=== PATIENT | female | born 1945 | race Caucasian/White ===

== ENCOUNTER → 2018-01-12 11:30 | Oncology outpatient (ONC) | payer MEDICARE, OTHER, SELFPAY ==
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
[2017-07-30 16:04] VITALS: BP 118/102; PULSE 96; RESP 17; TEMP 37.2; O2SAT 98
--- NOTE | 2017-08-20 15:37 | ONC.NAV ---
Description: Felida Activity: Per pt's request, [employer] completed a medical priority boarding pass for pt and provided it to her during her infusion. Note: Only made it for the 6-week duration of her iron infusions. No other needs identified at this time.
[2017-08-20 15:47] VITALS: BP 130/71; PULSE 83; RESP 18; TEMP 37.1; O2SAT 95
[2017-08-20] MEDS: IRON SUCROSE 200 MG in SODIUM CHLORIDE 0.9% 100 ML 220 ML IV (15:50)
[2017-08-29] MEDS: IRON SUCROSE 200 MG in SODIUM CHLORIDE 0.9% 100 ML 220 ML IV (12:15)
[2017-08-29 13:28] VITALS: BP 122/69; PULSE 80; RESP 16; TEMP 37; O2SAT 92
[2017-09-04 11:55] VITALS: BP 125/57; PULSE 92; RESP 18; TEMP 36.8; O2SAT 96
[2017-09-04] MEDS: IRON SUCROSE 200 MG in SODIUM CHLORIDE 0.9% 100 ML 220 ML IV (12:08)
[2017-09-10 10:31] VITALS: BP 122/45; PULSE 85; RESP 17; TEMP 36.7; O2SAT 95
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
[2017-09-10] MEDS: IRON SUCROSE 200 MG in SODIUM CHLORIDE 0.9% 100 ML 220 ML IV (11:15)
[2017-09-17] MEDS: IRON SUCROSE 200 MG in SODIUM CHLORIDE 0.9% 100 ML 220 ML IV (12:05)
[2017-09-17 12:14] VITALS: BP 132/56; PULSE 93; RESP 14; TEMP 36.8; O2SAT 96
[2017-10-01 10:52] LABS: Reticulocyte Count, Percent 1.5 % (1.06-2.63)
[2017-10-01 10:53] LABS: Add Manual Diff / Slide Review NO; Eosinophils Percent Auto 3.4 % (2-4); Hematocrit 40.1 % (36-46); Hemoglobin 12.1 g/dL (12.0-16.0); Lymphocytes Percent Auto 21.6 % (25-40); Mean Corpuscular HGB Conc 30.2 % (30-36); Mean Corpuscular Volume 76.3 fL (80-100); Monocytes Percent Auto 5.4 % (3-14); Neutrophils Absolute Auto 3500 /uL (3000-5900); Neutrophils Percent Auto 68.6 % (50-75); Platelet Count 208 X10^3/uL (150-400); Red Blood Cell Count 5.25 X10^6/uL (4.0-5.2); Red Cell Distribution Width 30.8 % (11.6-14.8)
[2017-10-01 11:09] LABS: Alanine Aminotransferase 19 IU/L (9-52); Albumin 4.3 g/dL (3.5-5.0); Albumin Globulin Ratio 1.7 (1.0-2.8); Alkaline Phosphatase 63 U/L (38-126); Aspartate Aminotransferase 17 IU/L (14-36); Bilirubin Total 0.6 mg/dL (0.2-1.3); Blood Urea Nitrogen 23 mg/dL (7-17); Calcium 10.7 mg/dL (8.4-10.2); Carbon Dioxide 26 mmol/L (22-32); Chloride 108 mmol/L (98-107); Estimated Glomerular Filt Rate 54.3 mL/min (>60); Globulin 2.5 g/dL (1.7-4.1); Glucose 99 mg/dL (80-110); HEMOLYSIS < 15 (0-50); Sodium 143 mmol/L (137-145); Total Protein 6.8 g/dL (6.3-8.2)
[2017-10-01 11:28] LABS: Anisocytosis 2+; Poikilocytosis 1+
[2017-10-01 11:43] LABS: Ferritin 34.9 ng/mL (11.1-264)
[2017-10-01 11:52] LABS: HEMOLYSIS < 15 (0-50); Iron 36 ug/dL (37-170)
[2017-10-01 12:04] LABS: Percent Iron Saturation 9 % (15-50); Total Iron Binding Capacity 389 ug/dL (265-497); Transferrin 323 mg/dL (206-381)
[2017-10-08 10:17] VITALS: BP 133/75; PULSE 95; RESP 17; TEMP 36.7; O2SAT 98
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
[2017-12-22 11:35] LABS: Add Manual Diff / Slide Review NO; Basophils Percent Auto 0.9 % (0-2); Eosinophils Percent Auto 5.1 % (2-4); Hematocrit 42.1 % (36-46); Hemoglobin 13.2 g/dL (12.0-16.0); Mean Corpuscular HGB Conc 31.4 % (30-36); Mean Corpuscular Hemoglobin 26.1 PG (26-34); Monocytes Percent Auto 5.5 % (3-14); Neutrophils Absolute Auto 4100 /uL (3000-5900); Neutrophils Percent Auto 67.5 % (50-75); Platelet Count 202 X10^3/uL (150-400); Red Blood Cell Count 5.06 X10^6/uL (4.0-5.2); Red Cell Distribution Width 19.3 % (11.6-14.8)
[2017-12-22 11:46] LABS: Alanine Aminotransferase 26 IU/L (9-52); Albumin 4.3 g/dL (3.5-5.0); Albumin Globulin Ratio 1.7 (1.0-2.8); Alkaline Phosphatase 66 U/L (38-126); Aspartate Aminotransferase 16 IU/L (14-36); BUN Creatinine Ratio 15.5 (6-22); Bilirubin Total 0.5 mg/dL (0.2-1.3); Blood Urea Nitrogen 17 mg/dL (7-17); Calcium 10.4 mg/dL (8.4-10.2); Carbon Dioxide 28 mmol/L (22-32); Chloride 109 mmol/L (98-107); Estimated Glomerular Filt Rate 48.6 mL/min (>60); Globulin 2.5 g/dL (1.7-4.1); Glucose 96 mg/dL (80-110); HEMOLYSIS < 15 (0-50); Potassium 4.3 mmol/L (3.4-5.1); Sodium 145 mmol/L (137-145); Total Protein 6.8 g/dL (6.3-8.2)
[2017-12-22 12:13] LABS: Reticulocyte Count, Percent 1.3 % (1.06-2.63)
[2017-12-22 12:21] LABS: Ferritin 6.7 ng/mL (11.1-264)
[2017-12-22 13:03] LABS: HEMOLYSIS < 15 (0-50); Iron 44 ug/dL (37-170)
[2017-12-22 13:14] LABS: Percent Iron Saturation 12 % (15-50); Total Iron Binding Capacity 382 ug/dL (265-497); Transferrin 327 mg/dL (206-381)
[2018-01-12 12:03] VITALS: BP 125/54; PULSE 76; RESP 18; TEMP 36.8; O2SAT 94
--- NOTE | 2018-01-12 12:32 | ONC.PN ---
PN -Subjective Interval history: 72-year-old woman with iron deficiency anemia who presents for scheduled follow up. She then received iv iron Venofer 200 mg weekly x 5 from 08/20/2017 through 09/17/2017. She reports that her energy level is good. No nausea, no vomiting, no SOB, no CP, no diarrhea and no constipation. History of [facility] Illness: She notes a history of at least several years of anemia. She has received red blood cell transfusion in August 2016 at [facility]. From her recollection it sounds like she received 1 unit at that time. 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 She acknowledges delaying her 1st screening colonoscopy until age 68. Her most recent colonoscopy was about [address] Fishman in [place]. She has no history of colorectal malignancy. She does have a large hiatal hernia and has had at least [address] Fishman also referred her to Dr. Siddiqui at [facility] for surgical repair. She has had to reschedule this due to a fall and traumatic injury suffered by her . Previous lab work from [facility]/ on 06/11/2017 shows: WBC 4750, hemoglobin 8.6, hematocrit 34, no MCV found, ANC 5020, iron 17, TIBC 522, ferritin 3, creatinine 0.94, B12 213. Protein 6.3, albumin 4.4, ALT 12, AST 11, alk-phos 76. She did try taking oral iron for 6-8 weeks but felt terrible with constipation and GI symptoms. Repeat lab work reportedly did not show much improvement and she stopped the iron supplement. - Patient Self-Reported Symptoms SR Constitution: Fatigue/Malaise SR eye issues: Vision changes SR ears, nose, mouth, throat issues: Cough SR respiratory issues: Cough, Shortness of breath SR Cardiovascular issues: Shortness of breath with activity or lying flat SR Skin issues: Hair loss or scalp prob SR Gastrointestinal issues: Heartburn SR Genitourinary issues: Frequent urination SR Musculoskeletal issues: Joint pain or swelling, Cold hands or feet SR Neuro issues: Numbness or tingling SR Endocrine issues: Excessive urination - Additional ROS All systems PM: reviewed and no additional remarkable complaints except as stated Home Medications and Allergies Home Medications Medication Instructions Recorded Confirmed Type albuterol sulfate 2 puff INHALATION Q4-6H PRN 07/30/17 10/08/17 History aspirin 325 mg PO DAILY 07/30/17 10/08/17 History lansoprazole 30 mg PO DAILY 07/30/17 10/08/17 History lithium carbonate 300 mg PO BID 07/30/17 01/12/18 History naproxen 500 mg PO QD-BID PRN 07/30/17 10/08/17 History oxybutynin chloride 5 mg PO TID-QID 07/30/17 10/08/17 History sertraline 200 mg PO DAILY 07/30/17 10/08/17 History simvastatin 20 mg PO QPM 07/30/17 10/08/17 History meloxicam 7.5 mg PO DAILY 01/12/18 01/12/18 History Allergies Allergy/AdvReac Type Severity Reaction Status Date / Time Penicillins Allergy Mild Rash Verified 07/30/17 16:04 Exam Vital signs: Last Vital Signs Temp 98.3 F 01/12/18 12:03 Pulse 76 01/12/18 12:03 Resp 18 01/12/18 12:03 BP 125/54 L 01/12/18 12:03 Pulse Ox 94 01/12/18 12:03 ECOG 1 - Constitutional positive no acute distress, positive average body habitus - Routine HEENT Exam Head: Present: normocephalic, atraumatic Eye: Present: EOMI, PERRL, normal accommodation. Absent: conjunctival icterus ENT: Present: mucous membranes moist - Routine Neck Exam Present: supple. Absent: lymphadenopathy, thyromegaly - Routine Respiratory Exam Present: Clear to auscultation bilaterally. Absent: wheezes - Routine Cardiovascular Exam Present: RRR, S1, S2. Absent: murmur, gallop, rubs - Routine Abdominal Exam Present: soft. Absent: tenderness, distended, organomegaly - Routine Extremities Exam Absent: edema - Routine Neurological Exam Present: alert, oriented X3, CN II-XII intact. Absent: sensory deficit, motor deficit - Routine Psychiatric Exam Present: normal affect, normal thought process, cooperative, good insight, good judgment Results - Labs Laboratory Last Values WBC 6.0 X10^3/uL (4.5-11.0) 12/22/17 11:22 RBC 5.06 X10^6/uL (4.0-5.2) 12/22/17 11:22 Hgb 13.2 g/dL (12.0-16.0) 12/22/17 11:22 Hct 42.1 % (36-46) 12/22/17 11:22 MCV 83.0 fL (80-100) 12/22/17 11:22 MCH 26.1 PG (26-34) 12/22/17 11:22 MCHC 31.4 % (30-36) 12/22/17 11:22 RDW 19.3 % (11.6-14.8) H 12/22/17 11:22 Plt Count 202 X10^3/uL (150-400) 12/22/17 11:22 Neut % (Auto) 67.5 % (50-75) 12/22/17 11: Lymph % (Auto) 21.0 % (25-40) L 12/22/17 11:22 Baxter % (Auto) 5.5 % (3-14) 12/22/17 11: Eos % (Auto) 5.1 % (2-4) H 12/22/17 11:22 Baso % (Auto) 0.9 % (0-2) 12/22/17 11:22 Neut # (Auto) 4100 /uL (5453-2398) 12/22/17 11:22 RBC Morphology Not Reportable 10/01/17 10:22 Poikilocytosis 1+ H 10/01/17 10:22 Anisocytosis 2+ H 10/01/17 10: Percent Retic 1.3 % (1.06-2.63) 12/22/17 11:22 Sodium 145 mmol/L (137-145) 12/22/17 11:22 Potassium 4.3 mmol/L (3.4-5.1) 12/22/17 11:22 Chloride 109 mmol/L (98-107) H 12/22/17 11:22 Carbon Dioxide 28 mmol/L (22-32) 12/22/17 11:22 BUN 17 mg/dL (7-17) 12/22/17 11:22 Creatinine 1.10 mg/dL (0.52-1.04) H 12/22/17 11:22 Estimated GFR 48.6 mL/min (>60) L 12/22/17 11:22 BUN/Creatinine Ratio 15.5 (6-22) 12/22/17 11:22 Glucose 96 mg/dL (80-110) 12/22/17 11:22 Calcium 10.4 mg/dL (8.4-10.2) H 12/22/17 11:22 Iron 44 ug/dL (37-170) 12/22/17 11:22 TIBC 382 ug/dL (265-497) 12/22/17 11:22 % Saturation 12 % (15-50) L 12/22/17 11:22 Transferrin 327 mg/dL (206-381) 12/22/17 11:22 Ferritin 6.7 ng/mL (11.1-264) L 12/22/17 11:22 Total Bilirubin 0.5 mg/dL (0.2-1.3) 12/22/17 11:22 AST 16 IU/L (14-36) 12/22/17 11:22 ALT 26 IU/L (9-52) 12/22/17 11:22 Alkaline Phosphatase 66 U/L (38-126) 12/22/17 11:22 Total Protein 6.8 g/dL (6.3-8.2) 12/22/17 11:22 Albumin 4.3 g/dL (3.5-5.0) 12/22/17 11:22 Globulin 2.5 g/dL (1.7-4.1) 12/22/17 11:22 Albumin/Globulin Ratio 1.7 (1.0-2.8) 12/22/17 11:22 Assessment and Plan (1) Iron deficiency anemia I reviewed the laboratory results with the patient. Patient has a normal hemoglobin and hematocrit level. Patient's MCV has also normalized. Clinically patient reports good energy. I talked with the patient that at present her iron is fully supplemented after the iron infusion. I will continue current active surveillance. I also encouraged the patient to continue follow-up with Dr. Correia as far as gastrointestinal surveillance is concerned. Plan: 1. RTC in 3 months, CBC, CMP, B12, folic acid, Fe panel, Ferritin
== END ==
PROVIDERS: Internal Medicine Hematology & Oncology; Family Provider Family Medicine; PCP Family Medicine; Visit Provider Internal Medicine Hematology & Oncology
DX: D50.9 Iron deficiency anemia, unspecified (principal)
CPT/HCPCS: 36415; 80053; 82728; 83540; 83550; 85025; 85045; 96365; 99204; 99213; 99214; J1756

== ENCOUNTER → 2021-09-10 09:29 | Outpatient (CLI) | payer MEDICARE, OTHER, SELFPAY ==
--- NOTE | 2021-09-10 09:33 | DI.CT.S_ITS ---
PROCEDURE: CT SINUS SCREEN WO CON INDICATIONS: Chronic pansinusitis/facial pain/headache syndrome TECHNIQUE: Noncontrast 3.0 mm axial images acquired from the frontal sinuses to the mid-sella, with coronal and sagittal reformats. For radiation dose reduction, the following was used: automated exposure control, adjustment of mA and/or kV according to patient size. COMPARISON: None. FINDINGS: Image quality: Excellent. Sinuses: There is moderate to severe mucosal thickening with mild appearance of superimposed frothy fluid in the right maxillary sinus. Very minimal scattered areas of ethmoid air cell as well as sphenoid, frontal and left maxillary mucosal thickening are present. Ostiomeatal Complexes: There is occlusion of the right ostiomeatal complex. Left side is patent. Miscellaneous: Visualized intra-orbital contents are normal. No roma bullosa. Bilateral middle paradoxical turbinate curvature. No nasal septal deviation. IMPRESSION: Prominent right maxillary side mucosal thickening with small amount of frothy fluid suggestive of acute on chronic sinusitis. Minimal scattered mucosal thickening is present within the remaining sinuses. Occlusion of the right ostiomeatal complex. Dictated by: Lilian Enciso M.D. on 09/10/2021 at 12:10 Approved by: Lilian Enciso M.D. on 09/10/2021 at 12:15
== END ==
PROVIDERS: Family Provider Family Medicine; PCP Family Medicine; Referring Provider Otolaryngology; Visit Provider Otolaryngology
DX: J32.4 Chronic pansinusitis (principal); J34.89 Other specified disorders of nose and nasal sinuses; G44.89 Other headache syndrome; R09.82 Postnasal drip
CPT/HCPCS: 70486